=== PATIENT | female | born 1960 | race Caucasian/White ===

== ENCOUNTER 2017-03-04 12:25 | Emergency (ER) | payer OTHER ==
[~2017-03-04] VITALS: Ht 165.1 cm; Wt 84.6 kg
[~2017-03-04 12:25] MED LIST: ALBU8.5H8 INH; ATOM10CA PO; BUPR100T8 PO; CETI10TA30 PO; CLIN300C8 PO; ESOM20CA PO; FLUO10CA13 PO; FLUT16SP21 NS; FLUT1DIS3 IH; FLUT9.9S NS; HYDR-79 PO; HYDR-971 PO; HYDR7.5S PO; LEVO50TA PO; LEVO75TA5 PO; LIDO700A4 TP; LORA-434 PO; ONDA4TAB10 SL; ONDA8TAB12 PO; OSEL75CA PO; OXYM30SP NS; PSEU120T58 PO; SALS500T11 PO; SODI104S NS; SULF1TAB24 PO; cymbalta PO; meclizine
--- NOTE | 2017-03-04 12:41 | PHYS DOC ---
Past History Past Medical History: Asthma, Depression Past Surgical History: Other Smoking: Non-smoker Alcohol Use: None Drug Use: None Adult General Chief Complaint Chief Complaint: EYE PROBLEMS HPI HPI Patient is a 56-year-old female presenting to the emergency department for evaluation of right eye pain blurred vision and feeling that she got something in it. Patient was seen at the [facility] today and they referred her here for further evaluation. She says that she was mowing the lawn 4 weeks ago and felt that she got something in her eye at that time and it has been bothering her since that time. The past several days she started getting the blurred vision. She denies any photophobia, eye drainage, fevers chills nausea vomiting or other systemic symptoms. She has had cataract surgery in her right eye but no other complications. She denies wearing contact lenses but just wears bifocals intermittently. Review of Systems Review of Systems Constitutional: Denies fever or chills [] Eyes: + change in visual acuity, redness, eye pain [] Current Medications Current Medications Current Medications Medications (Trade) Dose Ordered Sig/Syed Start Time Stop Time Status Last Admin Dose Admin Fluorescein Sodium (Ful-Makenzie 1mg) 1 strip 1X ONCE 03/04/17 12:45 03/04/17 12:46 UNV Tetracaine HCl (Tetracaine) 1 drop 1X ONCE 03/04/17 12:45 03/04/17 12:46 UNV Allergies Allergies Allergies Coded Allergies Type Severity Reaction Last Updated Verified Penicillins Allergy Intermediate 11/13/15 Yes Physical Exam Physical Exam Constitutional: Well developed, well nourished, no acute distress, non-toxic appearance. [] Eyes: PERRLA, EOMI. on gross examination there is no erythema or hyphema. On fluorescein exam she appears to have a small abrasion on her sclera at approximately 5 o'clock position below iris. There is evidence of possible episcleritis at the 11 o'clock position. Negative Maurice sign. Patient very reluctant to have pressures in her eye checked but on exam her right I have pressures of 11,13 and 15. EKG EKG [] Radiology/Procedures Radiology/Procedures [] Course & Med Decision Making Course & Med Decision Making Patient has a small abrasion and possible episcleritis. She will daily shows 20 over 20 right left and bilaterally no vision changes on gross testing. She likely needs to see an under ground miner as she may end up needing steroids. I spoke to the physician who saw her at the clinic and he said that they will put in a referral for an under ground miner and they will take care of all follow-up for her. On erythromycin ointment for now and have her follow with the under ground miner as soon as possible and have her come back to the ED with worsening pain vision changes or other general concerns. Patient aware and agreeable with plan for discharge and verbalized understanding of the above instructions. Dragon Disclaimer Dragon Disclaimer This chart was dictated in whole or in part using Voice Recognition software in a busy, high-work load, and often noisy Emergency Department environment. It may contain unintended and wholly unrecognized errors or omissions. Departure Departure: Impression: Primary Impression: Corneal abrasion Disposition: HOME, SELF-CARE Condition: GOOD Referrals: SHANTI RAMSAY (PCP) Patient Instructions: Eye - Corneal Abrasion Additional Instructions: I spoke to the physician at the [facility] and they said that they will set up the ophthalmology follow-up for you. Please call them to confirm your follow- up appointment. Scripts Erythromycin Base (Erythromycin) 1 Gm Oint...g. 1 GM OP Q3-4HRS for 5 Days, [facility] Prov: RICARDO MCKEON DO 03/04/17 Problem Qualifiers Primary Impression: Corneal abrasion Encounter type: initial encounter Laterality: right Qualified Codes: S05.01XA - Injury of conjunctiva and corneal abrasion without foreign body, right eye, initial encounter RICARDO MCKEON DO Mar 04, 2017 12:41
[2017-03-04] MEDS ORDERED: TETRACAINE 0.5% OPHTH SOLUTION 4ML BOTTLE. OD ONE (13:00)
[2017-03-04] MEDS ORDERED: FLUORESCEIN 1MG EYE STRIP. OD ONE (13:00)
[2017-03-04] MEDS ORDERED: ERYT1OIN6 OP (13:20)
[2017-03-04 13:28] VITALS: BP 152/61
== END 2017-03-04 13:28 | disposition home or self-care (01) ==
LOC: ER 12:25
DX: S05.01XA Injury of conjunctiva and corneal abrasion without foreign body, right eye, initial encounter (principal); J45.909 Unspecified asthma, uncomplicated; Z88.0 Allergy status to penicillin; X58.XXXA Exposure to other specified factors, initial encounter; Y93.89 Activity, other specified; Y99.8 Other external cause status; Y92.89 Other specified places as the place of occurrence of the external cause
CPT/HCPCS: 99283; 99284

== ENCOUNTER 2017-07-19 11:59 | Emergency (ER) | payer OTHER ==
[~2017-07-19] VITALS: Ht 165.1 cm; Wt 83.9 kg
[~2017-07-19 11:59] MED LIST changes: +ERYT1OIN6 OP
[2017-07-19] MEDS ORDERED: PRED15SO46 PO (13:42)
[2017-07-19] MEDS ORDERED: AZIT200S PO (13:44)
--- NOTE | 2017-07-19 13:46 | PHYS DOC ---
General Chief Complaint: COUGH Stated Complaint: COUGH Time Seen by MD: 12:03 Source: patient Exam Limitations: no limitations Problems: History of Present Illness Initial Comments Patient is a 56-year-old female with history of asthma coming to the emergency department complaining of cough. Patient states that for the past week she's had a dry cough and chest and nasal congestion. She denies any actual chest pain or shortness of breath no fever chills sweats or body aches. She's been using [id number] medications without any relief and is uncertain whether symptoms are related to an actual infectious process or if it is her asthma acting up. In the emergency department she is afebrile vital signs are stable she is oxygenating well on room air. Timing/Duration: 1 week Severity: moderate Modifying Factors: improves with other Associated Symptoms: cough, other Allergies: Coded Allergies: Penicillins (Verified Allergy, Intermediate, 11/13/15) Family has allergies to penicillin, pt does not want to risk taking it. Past Medical History Medical History: asthma, other (hypothyroid, depression) Surgical History: noncontributory Family History Significant Family History: no pertinent family hx Social History Smoker: non-smoker Alcohol: none Drugs: none Review of Systems Constitutional: denies chills, denies diaphoresis, denies fever, denies malaise EENTM: denies ear pain, denies ear discharge, nose congestion, denies throat pain, denies throat swelling (sex) Respiratory: cough, denies shortness of breath, wheezing Cardiovascular: denies chest pain, denies palpitations, denies syncope Gastrointestinal: denies abdominal pain, denies nausea, denies vomiting Musculoskeletal: denies back pain, denies joint swelling, denies neck pain Psychiatric/Neurological: denies headache, denies numbness, denies paresthesia Physical Exam General Appearance: WD/WN, no apparent distress Ear, Nose, Throat: hearing grossly normal, normal ENT inspection, normal pharynx Neck: non-tender, supple Respiratory: chest non-tender, no respiratory distress, decreased breath sounds , wheezing Cardiovascular: normal peripheral pulses, regular rate, rhythm Back: no CVA tenderness, no vertebral tenderness Extremities: non-tender, normal inspection, no calf tenderness 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 Repeat exam increased wheezing with actually improved air movement. I discussed signs and symptoms to monitor as well as indications for urgent return apartment. Patient struggles with taking pills oral liquid medications provided. The patient's questions were answered to her satisfaction she expressed agreement of same treatment and see departure for instructions. Departure Time of Disposition: 13:45 Disposition: 01 HOME, SELF-CARE Diagnosis: bronchitis with bronchospasm Condition: GOOD Patient Instructions: Asthma Attacks, Prevention Additional Instructions: Avoid extremes of temperature for symptom control. [id number] Tylenol as needed. Continue current medications and inhalers, increase albuterol inhaler 2 every 4 hours and as needed. Prescription: (As you cannot take pills) Zithromax, Prelone Follow-up at [facility] next week after about 5-7 days for recheck. Return to ED with new or changing symptoms. ENRIQUE ZARATE DO Jul 19, 2017 13:46
[2017-07-19] MEDS ORDERED: IPRATRPIUM/ALBUTEROL 0.5/2.5MG 3 ML NEBU. NEB ONE (14:00)
[2017-07-19 14:27] VITALS: BP 135/72
== END 2017-07-19 14:25 | disposition home or self-care (01) ==
LOC: ER 11:59
DX: J20.9 Acute bronchitis, unspecified (principal); J45.909 Unspecified asthma, uncomplicated; E03.9 Hypothyroidism, unspecified; Z88.0 Allergy status to penicillin
CPT/HCPCS: 94640; 99283; J7620

== ENCOUNTER 2017-11-04 12:19 | Emergency (ER) | payer OTHER ==
[~2017-11-04] VITALS: Ht 165.1 cm; Wt 84.6 kg
[~2017-11-04 12:19] MED LIST changes: +AZIT200S PO; +PRED15SO46 PO
[2017-11-04] MEDS ORDERED: IPRATRPIUM/ALBUTEROL 0.5/2.5MG 3 ML NEBU. NEB ONE (13:00)
--- NOTE | 2017-11-04 13:24 | RAD ---
Chest, 2 views, 11/04/2017: HISTORY: Cough, chest pain The heart size and pulmonary vascularity are normal. No pulmonary infiltrate is seen. There is no evidence of pleural fluid. Minimal spurring is present in the spine. A spinal stimulator lead extends into the mid thoracic spinal canal. IMPRESSION: No acute cardiopulmonary abnormality is detected. Electronically signed by: Alverto Davis MD (11/04/2017 1:21 PM) [facility]
[2017-11-04] MEDS ORDERED: AZIT250T PO (13:48)
[2017-11-04] MEDS ORDERED: HYDR115S2 PO (13:48)
[2017-11-04] MEDS ORDERED: METH4TAB2 PO (13:48)
[2017-11-04 13:58] VITALS: BP 147/72
--- NOTE | 2017-11-04 14:01 | PHYS DOC ---
Past History Past Medical History: Asthma, Depression, Hypothyroid, Other Past Surgical History: No Surgical History Smoking: Non-smoker Alcohol Use: None Drug Use: None Adult General Chief Complaint Chief Complaint: COUGH HPI HPI 57 -year-old female patient with history of asthma complaining of respiratory symptoms for 2 weeks that getting worse for the last 6 days. Patient complaining of cough with productive green color sputum associated with chest soreness during episodes of cough and shortness of breath. Patient complaining of nasal congestion and sore throat without earache. Patient denies diarrhea, vomiting, urinary symptoms, earache. Patient had sick contacts at home. Patient states she took her home nebulizer and inhaler without improvement of her condition. Review of Systems Review of Systems Constitutional: Denies fever or chills [] Eyes: Denies change in visual acuity, redness, or eye pain [] HENT: Reports nasal congestion and sore throat Respiratory: Reports cough and shortness of breath Cardiovascular: No additional information not addressed in HPI [] GI: Denies abdominal pain, nausea, vomiting, bloody stools or diarrhea [] : Denies dysuria or hematuria [] Musculoskeletal: Denies back pain or joint pain [] Integument: Denies rash or skin lesions [] Neurologic: Denies headache, focal weakness or sensory changes [] Endocrine: Denies polyuria or polydipsia [] All other systems were reviewed and found to be within normal limits, except as documented in this note. Current Medications Current Medications Current Medications Medications (Trade) Dose Ordered Sig/Syed Start Time Stop Time Status Last Admin Dose Admin Albuterol/ Ipratropium (Duoneb) 3 ml 1X ONCE 11/04/17 13:00 11/04/17 13:02 DC 11/04/17 13:00 3 ML Allergies Allergies Allergies Coded Allergies Type Severity Reaction Last Updated Verified Penicillins Allergy Intermediate 11/13/15 Yes Physical Exam Physical Exam Constitutional: Well developed, well nourished, mild distress, non-toxic appearance. [] HENT: Normocephalic, atraumatic, bilateral external ears normal, oropharynx moist, no oral exudates, nose normal. [] Eyes: PERRLA, EOMI, conjunctiva normal, no discharge. [] Neck: Normal range of motion, no tenderness, supple, no stridor. [] Cardiovascular:Heart rate regular rhythm, no murmur [] Lungs & Thorax: Bilateral breath sounds clear to auscultation [] Abdomen: Bowel sounds normal, soft, no tenderness, no masses, no pulsatile masses. [] Skin: Warm, dry, no erythema, no rash. [] Back: No tenderness, no CVA tenderness. [] Extremities: No tenderness, no cyanosis, no clubbing, ROM intact, no edema. [] Neurologic: Alert and oriented X 3, normal motor function, normal sensory function, no focal deficits noted. [] Psychologic: Affect normal, judgement normal, mood normal. [] Current Patient Data Vital Signs Vital Signs Date Time Temp Pulse Resp B/P (MAP) Pulse Ox O2 Delivery O2 Flow Rate FiO2 11/04/17 13:17 99 11/04/17 12:59 63 18 132/73 (92) Room Air 11/04/17 12:27 97.7 EKG EKG [] Radiology/Procedures Radiology/Procedures [] [address] [address] IMAGING REPORT Signed PATIENT: TATO CHAVEZ ACCOUNT: [id number] : 1960 LOCATION: ER AGE: 57 SEX: F EXAM STATUS: REG ER ORD. PHYSICIAN: GALINA WILSON MD REASON: cough and shortness of breath PROCEDURE: CHEST PA & LATERAL Chest, 2 views, 11/04/2017: HISTORY: Cough, chest pain The heart size and pulmonary vascularity are normal. No pulmonary infiltrate is seen. There is no evidence of pleural fluid. Minimal spurring is present in the spine. A spinal stimulator lead extends into the mid thoracic spinal canal. IMPRESSION: No acute cardiopulmonary abnormality is detected. Electronically signed by: Alverto Davis MD (11/04/2017 1:21 PM) [facility] DICTATED AND SIGNED BY: ALVERTO DAVIS MD DATE: 11/04/17 1320 CC: SHANTI RAMSAY; GALINA WILSON MD ~ Course & Med Decision Making Course & Med Decision Making Pertinent Imaging studies reviewed. (See chart for details) Evaluation of patient in ER showed 57-year-old nonsmoking female patient with complaining of upper respiratory symptoms for 2 weeks that getting worse for 6 days. Patient had unremarkable chest x-ray and treated with nebulizer treatment in ER and felt better. Plan discharge patient home with diagnosis of acute bronchitis. I've spoken with the patient and/or caregivers. I've explained the patient's condition, diagnosis and treatment plan based on information available to me at this time. I've answered the patient's and/or caregivers questions and addressed any concerns. The patient and/or caregivers have a good understanding the patient's diagnosis, condition and treatment plan as can be expected at this point. Vital signs have been stabilized. The patient's condition is stable for discharge from the emergency department. The patient will pursue further outpatient evaluation with her primary care provider or other designated consulting physician as outlined in the discharge instructions. Patient and/or caregivers are agreeable to this plan of care and follow-up instructions have been explained in detail. The patient and/or caregivers have received these instructions in written format and expressed understanding of these discharge instructions. The patient and her caregivers are aware that if any significant change in condition or worsening of symptoms should prompt him to immediately return to this of the closest emergency department. If an emergent department is not readily available I would encourage him to call 911. [] Dragon Disclaimer Dragon Disclaimer This electronic medical record was generated, in whole or in part, using a voice recognition dictation system. Departure Departure: Impression: Primary Impression: Acute bronchitis due to infection Disposition: HOME, SELF-CARE (At 1349) Condition: IMPROVED Referrals: SHANTI RAMSAY (PCP) Patient Instructions: Acute Bronchitis Additional Instructions: Drink plenty of liquids Follow-up with your primary care physician in 3-5 days Return to ER if not getting better Continue home nebulizer and inhaler Scripts Hydrocodone/Chlorphen P-Stirex (Tussionex Pennkinetic Susp) 115 Ml Cornelia.er.12h 5 ML PO BID Y for COUGH, #120 ML Prov: GALINA WILSON MD 11/04/17 Methylprednisolone (MEDROL) 4 Mg Tab.ds.pk 1 PKG PO UD, #1 PKG Prov: GALINA WILSON MD 11/04/17 Azithromycin (ZITHROMAX) 250 Mg Tablet 1 PKG PO UD, #1 PKG Prov: GALINA WILSON MD 11/04/17 GALINA WILSON MD November 04, 2017 14:01
== END 2017-11-04 14:07 | disposition home or self-care (01) ==
LOC: ER 12:19
DX: J20.9 Acute bronchitis, unspecified (principal); J45.909 Unspecified asthma, uncomplicated; E03.9 Hypothyroidism, unspecified; F32.9 Major depressive disorder, single episode, unspecified; Z88.0 Allergy status to penicillin
CPT/HCPCS: 71046; 94640; 99284; J7620

== ENCOUNTER 2018-12-04 21:58 | Emergency (ER) | payer OTHER ==
[~2018-12-04] VITALS: Ht 165.1 cm; Wt 84.6 kg
[~2018-12-04 21:58] MED LIST changes: +ALBU2.5V8 INH; -ALBU8.5H8 INH; +AZIT250T PO; +HYDR-1179 PO; +HYDR-3165 PO; -HYDR-79 PO; -HYDR-971 PO; +HYDR115S2 PO; +LORA-254 PO; -LORA-434 PO; +METH4TAB2 PO
[2018-12-04 22:00] VITALS: BP 119/62
[2018-12-04] MEDS ORDERED: DOXY100T PO (22:32)
--- NOTE | 2018-12-04 22:37 | PHYS DOC ---
Past History Past Medical History: Asthma, Depression, Hypothyroid, Other Past Surgical History: No Surgical History Smoking: Non-smoker Alcohol Use: None Drug Use: None Adult General Chief Complaint Chief Complaint: ALLERGIES HPI HPI 58-year-old female presents to the emergency room with maxillary sinus pressure and pain. The patient has been short sinus drainage and sinus congestion for about 8 weeks. She has tried multiple medications as prescribed by her PCP. She was prescribed Bactrim [Home when she went on vacation. She did not take the total course. Patient presents tonight because the pressure continues to cause headaches she doesn't what else to do. She admits she has an appointment with her PCP tomorrow. She denies measured fever. Review of Systems Review of Systems Constitutional: Denies fever or chills [] Eyes: Denies change in visual acuity, redness, or eye pain [] HENT: nasal congestion [] Respiratory: Cough without shortness of breath [] Cardiovascular: No additional information not addressed in HPI [] GI: Denies abdominal pain, nausea, vomiting, bloody stools or diarrhea [] : Denies dysuria or hematuria [] Musculoskeletal: Denies back pain or joint pain [] Integument: Denies rash or skin lesions [] Neurologic: Denies headache, focal weakness or sensory changes [] Endocrine: Denies polyuria or polydipsia [] All other systems were reviewed and found to be within normal limits, except as documented in this note. Allergies Allergies Allergies Coded Allergies Type Severity Reaction Last Updated Verified Penicillins Allergy Intermediate 11/13/15 Yes Physical Exam Physical Exam Constitutional: Well developed, well nourished, no acute distress, non-toxic appearance. [] HENT: Normocephalic, atraumatic, bilateral external ears normal, oropharynx moist, no oral exudates, nose congested. Tenderness over the maxillary sinuses [] Eyes: PERRLA, EOMI, conjunctiva normal, no discharge. [] Neck: Normal range of motion, no tenderness, supple, no stridor. [] Cardiovascular:Heart rate regular rhythm, no murmur [] Lungs & Thorax: Bilateral breath sounds clear to auscultation [] Abdomen: Bowel sounds normal, soft, no tenderness, no masses, no pulsatile masses. [] Skin: Warm, dry, no erythema, no rash. [] Back: No tenderness, no CVA tenderness. [] Extremities: No tenderness, no cyanosis, no clubbing, ROM intact, no edema. [] Neurologic: Alert and oriented X 3, normal motor function, normal sensory function, no focal deficits noted. [] Psychologic: Affect normal, judgement normal, mood normal. [] Current Patient Data Vital Signs Vital Signs Date Time Temp Pulse Resp B/P (MAP) Pulse Ox O2 Delivery O2 Flow Rate FiO2 12/04/18 22:00 97.9 70 16 98 Room Air EKG EKG [] Radiology/Procedures Radiology/Procedures [] Course & Med Decision Making Course & Med Decision Making Pertinent Labs and Imaging studies reviewed. (See chart for details) Based on the treatments the patient has tried, she has not done a complete course of antibiotics. I will prescribe doxycycline for 7 days. We will give the first dose in the ED. I have advised that she continue Flonase, cetirizine, and nasal saline rinses. She will ask about a referral to a specialist at her PCPs office tomorrow. She is stable for discharge at this time. [] Dragon Disclaimer Dragon Disclaimer This electronic medical record was generated, in whole or in part, using a voice recognition dictation system. Departure Departure: Impression: Primary Impression: Acute bacterial sinusitis Disposition: HOME, SELF-CARE Condition: STABLE Referrals: SHANTI RAMSAY (PCP) Patient Instructions: Sinusitis Scripts Doxycycline Hyclate (DOXYCYCLINE HYCLATE) 100 Mg Tablet 1 TAB PO BID for sinusitis, #14 TAB Prov: GELY JONES DO 12/04/18 GELY JONES DO Dec 04, 2018 22:37
[2018-12-04] MEDS ORDERED: DOXYCYCLINE HYCLATE 100 MG TABLET PO ONE (22:45)
== END 2018-12-04 22:53 | disposition home or self-care (01) ==
LOC: ER 21:58
DX: J01.90 Acute sinusitis, unspecified (principal); B96.89 Other specified bacterial agents as the cause of diseases classified elsewhere; J45.909 Unspecified asthma, uncomplicated; F32.9 Major depressive disorder, single episode, unspecified; E03.9 Hypothyroidism, unspecified; Z88.0 Allergy status to penicillin
CPT/HCPCS: 99283

== ENCOUNTER 2020-05-11 23:46 | Emergency (ER) | payer OTHER ==
[~2020-05-11] VITALS: Ht 165.1 cm; Wt 84.6 kg
[~2020-05-11 23:46] MED LIST changes: +DOXY100T PO; -OXYM30SP NS; +OXYM30SP25 NS
--- NOTE | 2020-05-12 00:42 | PHYS DOC ---
Past History Past Medical History: Arthritis, Asthma, Depression, Hypothyroid, Other Past Surgical History: No Surgical History Smoking: Non-smoker Alcohol Use: None Drug Use: None General Adult EDM: Chief Complaint: KNEE INJURY HPI: HPI: "... I was going down the stairs... three weeks.. ago.. and my Rt. knee got pain.. and the patellar shift all the way to Rt... I ve been trying to let it heal up..but it hurts all the time..I still can't walk on it right..."\\ Patient is a 59 year old female who presents with above hx and complaints right patellar dislocation and increased pain. Injury occurred approximately 3 weeks ago. Patient has marked joint instability when she attempts to go downstairs. Patient is able to do straight leg lift. Distal neurovascular equal to left foot. Does have obvious swelling and tenderness in right knee. Patient has crepitation with range of motion. Weightbearing increases pain. Patient denies previous patellar dislocation. Patient normally follows at [facility] as a dependent. Review of Systems: Review of Systems: Constitutional: Denies fever or chills Eyes: Denies change in visual acuity HENT: Denies nasal congestion or sore throat Respiratory: Denies cough or shortness of breath Cardiovascular: Denies chest pain or edema GI: Denies abdominal pain, nausea, vomiting, bloody stools or diarrhea : Denies dysuria Musculoskeletal: Complains of right knee injury Integument: Denies rash Neurologic: Denies headache, focal weakness or sensory changes Endocrine: Denies polyuria or polydipsia Lymphatic: Denies swollen glands Psychiatric: Denies depression or anxiety Family History: Family History: Noncontributory to presentation Current Medications: Current Meds: See nursing for home meds Allergies: Allergies: Allergies Coded Allergies Type Severity Reaction Last Updated Verified Penicillins Allergy Intermediate 11/13/15 Yes Physical Exam: PE: Constitutional: Moderate acute distress, non-toxic appearance. [] HENT: Normocephalic, atraumatic, bilateral external ears normal, oropharynx moist, no oral exudates, nose normal. [] Eyes: PERRLA, EOMI, conjunctiva normal, no discharge. [] Neck: Normal range of motion, no tenderness, supple, no stridor. [] Cardiovascular:Heart rate regular rhythm, no murmur [] Lungs & Thorax: Bilateral breath sounds clear to auscultation [] Abdomen: Bowel sounds normal, soft, no tenderness, no masses, no pulsatile masses. [] Skin: Warm, dry, no erythema, no rash. [] Back: No tenderness, no CVA tenderness. [] Extremities: No tenderness, no cyanosis, no clubbing, ROM intact, no edema. Except findings as noted in HPI Neurologic: Alert and oriented X 3, normal motor function, normal sensory function, no focal deficits noted. [] Psychologic: Affect anxious, judgement normal, mood normal. [] EKG: EKG: [] Radiology/Procedures: Radiology/Procedures: [][place] [address] IMAGING REPORT Signed PATIENT: TATO CHAVEZ ACCOUNT: [id number] : 1960 LOCATION: ER AGE: 59 SEX: F EXAM STATUS: REG ER ORD. PHYSICIAN: SALVADOR ISIDRO MD REASON: PATELLA DISLOCATION, PAIN - X 3 WEEKS PROCEDURE: KNEE RIGHT 4V Study: CR KNEE RIGHT 4V Indication: Patellar dislocation. Pain. Comparison: None. Findings: In the setting of reported patellar dislocation the patella appears normally located on this exam. No displaced fracture is identified. Maintained femorotibial compartment joint space height. Small knee joint effusion. Quadriceps insertion enthesophyte formation. Sclerotic focus within the lateral femoral condyle favored a bone island. Impression: 1. No acute fracture or traumatic malalignment. In the setting of reported patellar dislocation, eventual nonemergent/outpatient MRI would better evaluate the ligaments and assess for any osseous impaction if deemed clinically necessary. 2. Small appearing knee joint effusion. Electronically signed by: GARCÍA GLYNN MD (05/12/2020 1:39 AM) [id number] DICTATED AND SIGNED BY: GARCÍA GLYNN MD DATE: 05/12/20 0139 CC: SHANTI RAMSAY; SALVADOR ISIDRO MD ~ Heart Score: Risk Factors: Risk Factors: DM, Current or recent (<one month) smoker, HTN, HLP, family history of CAD, obesity. Risk Scores: Score 0 - 3: 2.5% MACE over next 6 weeks - Discharge Home Score 4 - 6: 20.3% MACE over next 6 weeks - Admit for Clinical Observation Score 7 - 10: 72.7% MACE over next 6 weeks - Early Invasive Strategies Course & Med Decision Making: Course & Med Decision Making Pertinent Labs and Imaging studies reviewed. (See chart for details) Patient use ice packs as needed, elevate knee, wear Chandu wrap or her knee splint. Use her [place] crutches.. Take Tylenol and ibuprofen for pain. For marked pain may take Vicoprofen up to 4 times a day. Must follow-up with orthopedics. Return if any concerns. Impression: 1. Anterior cruciate tear or sprain 2. History right knee patellar dislocation [] Dragon Disclaimer: [place] Disclaimer: This electronic medical record was generated, in whole or in part, using a voice recognition dictation system. Departure Departure: Referrals: SHANTI RAMSAY (PCP) Scripts Hydrocodone/Ibuprofen (HYDROCODONE-IBUPROFEN 7.5-200 ) 1 Each Tablet 1 TAB PO PRN Q6HRS PRN for PAIN, #30 TAB 0 Refills Prov: SALVADOR ISIDRO MD 05/12/20 Justyn Disclaimer This chart was dictated in whole or in part using Voice Recognition software in a busy, high-work load, and often noisy Emergency Department environment. It may contain unintended and wholly unrecognized errors or omissions. SALVADOR ISIDRO MD May 12, 2020 00:42
--- NOTE | 2020-05-12 01:42 | RAD ---
Study: CR KNEE RIGHT 4V Indication: Patellar dislocation. Pain. Comparison: None. Findings: In the setting of reported patellar dislocation the patella appears normally located on this exam. No displaced fracture is identified. Maintained femorotibial compartment joint space height. Small knee joint effusion. Quadriceps insertion enthesophyte formation. Sclerotic focus within the lateral femoral condyle favored a bone island. Impression: 1. No acute fracture or traumatic malalignment. In the setting of reported patellar dislocation, eventual nonemergent/outpatient MRI would better evaluate the ligaments and assess for any osseous impaction if deemed clinically necessary. 2. Small appearing knee joint effusion. Electronically signed by: GARCÍA GLYNN MD (05/12/2020 1:39 AM) [id number]
[2020-05-12] MEDS ORDERED: HYDR-1179 PO (02:44)
[2020-05-12 02:55] VITALS: BP 146/88
[2020-05-12] MEDS ORDERED: KETOROLAC 60 MG/2 ML VIAL. IM ONE (03:00)
== END 2020-05-12 02:55 | disposition home or self-care (01) ==
LOC: ER 23:46
DX: S83.511A Sprain of anterior cruciate ligament of right knee, initial encounter (principal); R22.41 Localized swelling, mass and lump, right lower limb; Z88.0 Allergy status to penicillin; J45.909 Unspecified asthma, uncomplicated; M19.90 Unspecified osteoarthritis, unspecified site; E03.9 Hypothyroidism, unspecified; X50.9XXA Other and unspecified overexertion or strenuous movements or postures, initial encounter; Y93.89 Activity, other specified; Y92.89 Other specified places as the place of occurrence of the external cause; Y99.8 Other external cause status
CPT/HCPCS: 73564; 96372; 99284; J1885